=== PATIENT | male | born 1985 | race African-American/Black ===

== ENCOUNTER 2017-03-12 03:15 | Emergency (ER) | payer MEDICAID ==
[~2017-03-12] VITALS: Ht 190.5 cm; Wt 99.8 kg
[~2017-03-12 03:15] MED LIST: IBUPROFEN600 MG ORAL; IBUPROFEN800 MG ORAL
[2017-03-12] MEDS ORDERED: NKM (03:38)
[2017-03-12 03:46] VITALS: BP 126/89
[2017-03-12] MEDS ORDERED: oxyCODONE HCL/Acetaminophen 5/325mg ORAL ONE (04:15)
[2017-03-12] MEDS ORDERED: KEFLEX500 MG ORAL (04:22)
[2017-03-12] MEDS ORDERED: IBUPROFEN800 MG ORAL (04:22)
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
[2017-03-12 04:56] VITALS: BP 126/89
== END 2017-03-12 04:56 | disposition home or self-care (01) ==
LOC: EMR 03:57
DX: L03.011 Cellulitis of right finger (principal); M25.561 Pain in right knee
CPT/HCPCS: 10060; 99284

== ENCOUNTER 2017-10-05 21:50 | Emergency (ER) | payer MEDICAID ==
[~2017-10-05] VITALS: Ht 190.5 cm; Wt 99.8 kg
[~2017-10-05 21:50] MED LIST changes: +KEFLEX500 MG ORAL; +NKM
[2017-10-05 22:10] VITALS: BP 124/78
[2017-10-05 23:28] VITALS: BP 124/78
--- NOTE | 2017-10-06 03:59 | Emergency Room Report ---
History of Present Illness General Chief Complaint: Pain Source: Patient Present Illness HPI 32-year-old male complaining of pain to right knee, associated with clicking and popping sounds. Patient states earlier today he noted dentist in the area where his knee Usually is and was able to "pop it back in" Denies any recent trauma to knee, history of knee dislocations. Did not take any [id number] pain medications. States pain to right knee with ambulation Allergies: Coded Allergies: No Known Allergies (Unverified , 03/12/17) Patient History Past Medical History: none Past Surgical History: none Pertinent Family History: none Social History: Denies: smoking, alcohol use, drug use Immunizations: UTD Reviewed Nursing Documentation: PMH: Agreed, PSxH: Agreed Nursing Documentation-PMH Past Medical History: No Stated History Review of Systems All Other Systems: negative except mentioned in HPI Physical Exam Vital Signs Date Time Temp Pulse Resp B/P (MAP) Pulse Ox O2 Delivery O2 Flow Rate FiO2 10/05/17 21:56 98.6 85 18 124/78 99 Room Air 98.6 Sp02 EP Interpretation: reviewed, normal General Appearance: normal inspection, well appearing, no apparent distress, alert, GCS 15, non-toxic Head: normocephalic, atraumatic Eyes: bilateral eye PERRL, bilateral eye EOMI ENT: normal ENT inspection, hearing grossly normal, normal pharynx, no angioedema, normal voice, TMs + canals normal, uvula midline, moist mucus membranes Neck: normal inspection, full range of motion, supple, thyroid normal, no meningismus, no bony tend Respiratory: normal inspection, lungs clear, normal breath sounds, no rhonchi, no respiratory distress, no retraction, no accessory muscle use, no wheezing, speaking full sentences Cardiovascular #1: regular rate, rhythm, no edema, no JVD, normal capillary refill Gastrointestinal: normal inspection, normal bowel sounds, non tender, soft, no mass, no peritonitis, non-distended, no guarding, no hernia, no pulsatile mass Genitourinary: no CVA tenderness Musculoskeletal: normal inspection, back normal, normal range of motion, no calf tenderness, pelvis stable, Yoli's Sign negative, other - No obvious deformity to right knee; no patella dislocation. Able to flex/extend at joint. Mild ttp to patella. No ttp or deformity to distal Tib/fib. 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, motor strength/tone normal, cerebellar normal, normal gait, speech normal Psychiatric: normal inspection, judgement/insight normal, mood/affect normal, no suicidal/homicidal ideation, no delusions Skin: normal inspection, normal color, no rash Lymphatic: normal inspection, no adenopathy Medical Decision Making Diagnostic Impression: Primary Impression: Knee pain Qualified Codes: M25.561 - Pain in right knee ER Course Vital signs stable, afebrile no Obvious trauma, patella not currently dislocated its possible patient had spontaneous dislocation and then reduced dislocation himself I advised knee immobilizer however patient states "I don't want that, I have at home." I advised Joaquin bandage, RICE, Motrin as needed for pain Patient requested and was given note for work recommended orthopedic followup for possible MRI to evaluate for ligament, tendon injury. ER course: Patient has remained stable during ED stay. Disposition: Patient is to be discharged to home. Prescriptions given are motrin Patient is instructed to follow up with their primary care doctor within 5 days. Patient is instructed to follow up with orthopedist Strict return precautions discussed with patient such as fever, chills, worsening/severe pain, nausea, vomiting, which may indicate severe illness. Patient verbalizes understanding and agrees with plan. Please note that this Emergency Department Report was dictated using [employer] tender technology software, occasionally this can lead to erroneous entry secondary to interpretation by the dictation equipment Last Vital Signs Date Time Temp Pulse Resp B/P (MAP) Pulse Ox O2 Delivery O2 Flow Rate FiO2 10/05/17 23:28 98.6 18 124/78 99 Room Air 98.6 10/05/17 21:56 85 Status: improved Disposition: HOME, SELF-CARE Condition: Improved Referrals: [facility],REFERR[facility] (PCP) Departure Forms: Return to Work Return to Work in (Days): 1 Return to Work Date: Oct 07, 2017 Patient Instructions: Knee Pain, [id number] Additional Instructions: - Keep JOAQUIN bandage on right knee - ICE, Motrin as needed 600-800mg every 8 hours for pain - Ask your primary doctor to refer you for MRI of right knee JAYDA VOSS M.D. Oct 06, 2017 03:59
== END 2017-10-05 23:28 | disposition home or self-care (01) ==
LOC: EMR 22:30
DX: M25.561 Pain in right knee (principal)
CPT/HCPCS: 99282

== ENCOUNTER 2017-11-02 11:00 | Emergency (ER) | payer MEDICAID ==
[~2017-11-02] VITALS: Ht 190.5 cm; Wt 99.8 kg
[2017-11-02 11:24] VITALS: BP 123/89
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
[2017-11-02 14:36] VITALS: BP 123/89
== END 2017-11-02 12:30 | disposition home or self-care (01) ==
LOC: EMR 11:24
DX: M25.561 Pain in right knee (principal)
CPT/HCPCS: 99282